=== PATIENT | male | born 1990 | race Caucasian/White ===

== ENCOUNTER 2022-04-19 14:00 | Emergency (ER) | payer BC, SELFPAY ==
[2022-04-19 14:12] VITALS: BP 145/73; PULSE 104; RESP 16; TEMP 37.2; O2SAT 97
--- NOTE | 2022-04-19 14:20 | ED.GENADUL_ITS ---
Discharge Plan Disposition Patient Disposition: Home Condition: Improving Discharge Details Clinical Impression: Laceration of right buttock Primary Care Provider: Tanika,Local ED Provider: Ankit Ren Home Meds and New Rx's Prescriptions: No Action No Known Home Meds Discharge Instructions Instructions: Laceration (ED) Additional Instructions: Laceration was repaired with 14 sutures. [id number] medications such as Tylenol and/or Motrin as directed for discomfort. Cool compresses every 2 hours for 20 minutes. Change antibiotic dressing daily. Please watch for new or worsening symptoms and return to the ER for any concerns. Lastly, I would like you to follow-up with your primary care provider when you return home to [place] in the next 10 days for wound recheck and suture removal, sutures should be removed in approximately 10 days Medical Decision Making 31-year-old gentleman, tetanus status up-to-date, no significant past medical history, presents for a right buttocks laceration that he sustained prior to arrival while snowboarding. He states that the coverage of the snow was not very thick and he must have cut himself on a rock. He states he was not going fast and the fall was not very aggressive. Denies any distracting injuries. Laceration will require repair. Laceration repaired without difficulty. Patient tolerated well. He is driving home to [place] this afternoon, we discussed the importance of follow-up once he returns home with his PCP for wound recheck and suture removal. Standard discharge and return precautions were provided. Patient understands, is agreeable to this plan, and has no additional questions or concerns upon discharge. This documentation was generated using [employer] dictation system, please disregard any oddities of phrase or misspellings. HPI General Mode of arrival: ambulatory . Date/Time Provider Initiated Documentation: 04/19/22 14:18 . Limitations to Documentation: no limitations . Information obtained by: patient . History of Present Illness 31 year old M presents to the emergency department with the chief complaint of R buttock lac, described as mild, with intensity rated at 3. Quality is described as aching, and is localized to the buttocks and right. Patient reports no radiation. Patient started experiencing this hour(s) (2) and it has been constant. No relieving factors improve symptom(s), No exacerbating factors reported . Patient notes no other symptoms.. Patient did receive the following treatments prior to arrival, none Related Data Home Medications Medication Instructions Recorded Confirmed Unknown [No Known Home Meds] 04/19/22 04/19/22 Allergies Allergy/AdvReac Type Severity Reaction Status Date / Time No Known Allergies Allergy Unverified 04/19/22 14:15 General Stated Complaint: Laceration CELENA: 3 Review of Systems Constitutional Constitutional: Denies headache(s) and Denies weakness ENT Ears, Nose, Mouth, and Throat: Denies headache(s) and Denies neck pain Gastrointestinal Gastrointestinal: Denies nausea and Denies vomiting Genitourinary Genitourinary: Denies urinary incontinence Musculoskeletal Musculoskeletal: Denies back pain, Denies neck pain, Denies numbness and Denies tingling Integumentary/Breasts Skin/Breast: Denies rash Neurologic Neurologic: Denies headache(s), Denies numbness, Denies tingling and Denies weakness PFSH All Active Problems (Updated 04/19/22 @ 14:57 by HAYES Heart) Laceration of right buttock (Acute) Social History Smoking/Tobacco Use Status: Never Smoking risk assessment performed?: Yes Alcohol Intake: current Alcohol Intake frequency: a few times a week Drug use: Never Substance use type: does not use Do you feel safe at home: Yes Do you feel safe in your relationship?: Yes Exam Const General: cooperative, healthy appearing, comfortable and no acute distress Orientation: alert, awake and oriented x3 HENMT Head: normal to inspection, normocephalic and atraumatic Face and sinus: normal facial exam Mouth: moist mucous membranes Eyes General: appearance normal, both eyes and all related structures Conjunctivae: conjunctivae normal Neck Neck: normal visual inspection, full ROM, trachea midline and supple Resp Effort & Inspection: normal respiratory effort and able to speak in complete sentences Back/Spine/Pelvis Back: no CVA tenderness and No back tenderness Back/spine/pelvis image: 1. 8.5 cm laceration. Diffuse mild discomfort. Bleeding is controlled. Neuro, vascular, tendon intact. Skin General skin exam: no rashes or lesions noted Neuro General: patient alert, patient awake, moves all extremities and no focal motor deficits Cognition: normal cognition Speech: speech normal Gait: normal gait Motor: muscle tone normal throughout Sensory Exam: no sensory deficits noted Extrem General: normal to inspection, full ROM and capillary refill normal Psych Appearance: grossly normal Mental Status: mental status grossly normal Course Vital Signs Vital signs: Vital Signs Temperature 37.2 C 04/19/22 14:12 Pulse 104 H 04/19/22 14:12 Respiratory Rate 16 04/19/22 14:12 Blood Pressure 145/73 H 04/19/22 14:12 Pulse Oximetry 97 04/19/22 14:12 Temperature 37.2 C 04/19/22 14:12 Temperature Source Skin 04/19/22 14:12 Pulse 104 H 04/19/22 14:12 Respiratory Rate 16 04/19/22 14:12 Respiratory Effort 04/19/22 14:16 Blood Pressure 145/73 H 04/19/22 14:12 Blood Pressure Position Supine 04/19/22 14:12 Pulse Oximetry 97 04/19/22 14:12 Oxygen Delivery Method Room Air 04/19/22 14:12 Oxygen Flow Rate 0 04/19/22 14:12 Pain Level 2 04/19/22 14:12 Procedures Laceration Laceration 1: Site: other (Buttocks) Side (If applicable): right Size (cm): 8.5 Description: linear Depth: simple, single layer Local Anesthetic: Lidocaine 1%, Bupivicaine 0.5%, with Epi and other anesthetic ([id number] mixture) Amount of anesthesia used (mL): 10 Pre-repair: wound explored, irrigated extensively and deep structures intact Skin layer closed with: nylon Size (cm): 4-0 Number of sutures: 14 Technique: simple, interrupted
[2022-04-19] MEDS: Bupivacaine 0.5% Pres-Free 30 ML VIAL (14:30)
[2022-04-19] MEDS: Lidocaine 2% Pres-Free W/EPI 1/200,000 20 ML VIAL (15:11)
== END 2022-04-19 15:16 | disposition home or self-care (01) ==
PROVIDERS: Emergency Provider Physician Assistant
DX: S31.811A Laceration without foreign body of right buttock, initial encounter (principal); V00.311A Fall from snowboard, initial encounter
CPT/HCPCS: 12004